=== PATIENT | male | born 1960 | race Caucasian/White ===

== ENCOUNTER 2023-11-12 07:03 | Day surgery (SDC) | payer OTHER, SELFPAY ==
[2023-11-08 09:47] VITALS: BMI 21.7
[2023-11-12 07:09] VITALS: RESP 18; TEMP 36.6; BMI 21.8
--- NOTE | 2023-11-12 07:25 | HO.ANESPROP2 ---
[facility] Past Medical History Medical History IBS (irritable bowel syndrome) Pseudothrombocytopenia Pernicious anemia Surgical History Surgical History Hx of inguinal hernia repair Hx of vasectomy H/O colonoscopy History of esophagogastroduodenoscopy (EGD) History of Problems with Anesthesia: No Social History Social History Household Members: Spouse Patient Tobacco Use Status: Never used Tobacco Are you DNR?: No Advance Directives: No Advance Directives Information Provided: Yes Meds Allergies Allergy/AdvReac Type Severity Reaction Status Date / Time No Known Allergies Allergy Verified 11/08/23 09:47 Home Medications Medication Instructions Recorded Confirmed Last Taken Type Vitamin B-12 11/08/23 11/08/23 Unknown History dicyclomine 10 mg capsule 10 mg PO QID 11/08/23 11/08/23 Unknown History Exam Height,Weight and Vital Signs: Height 6 ft Weight 72.8 kg Last Vital Signs Temp 98 F 11/12/23 07:09 Resp 18 11/12/23 07:09 O2 Del Method Room Air 11/12/23 07:09 Airway Mallampati Class: III TM Dist: >3cm Neck ROM: Full Loose/Missing/Broken Teeth: No Heart: RRR Lungs: CTA Assessment and Plan Assessment Anesthesia Assessment: Anesthesia Plan Discussed and Chart Reviewed Final Anesthetic Review History of Problems with Anesthesia: No NPO: Yes ASA Class: II Final Preanesthetic Review: Meds/Allgs Chart Reviewed, Consent Obtained/Reviewed and Anes Risks/Benef Reviewed Patient Risk: Low Procedure Risk: Intermediate Anesthetic Plan Anesthetic Plan: MAC: Disposition: Standard PACU
[2023-11-12] MEDS: Lactated Ringers 1,000 ML 50 ML IVCONT (07:26)
--- NOTE | 2023-11-12 08:19 | MHC.SHP ---
Pre-Procedural Eval Section A - 24 Hr Update-Section A only Date of Service: 11/12/23 Section B - Complete if H&P > 30 days Chief Complaint: Encounter for screening for malignant neoplasm of Details of Present Illness: see H&P no changes Relevant Family History (Specify if Yes): No Relevant Social History: None Present Medications: see Short Stay Collaborative assessment Medical History: No relevant PMH Allergies: Allergies Allergy/AdvReac Type Severity Reaction Status Date / Time No Known Allergies Allergy Verified 11/08/23 09:47 Review of Systems Sugical H&P ROS: Negative: Constitution, Cardiovascular, Respiratory, Neurological, Psychiatric, Hem-Onc, Allergic/Immunologic, Gastrointestinal, Genitourinary, Musculoskeletal, Integumentary, Endocrine and Eyes/Ears/Nose/Throat Exam Surgical H&P Exam: Normal: HEENT, Normal: Heart, Normal: Lungs, Normal: Extremities, Normal: Abdomen, Normal: Skin and Normal: Neurological Plan Diagnosis/Plan: Unchanged I have reviewed the history and physical and performed a pertinent physical examination on my patient. No changes have occurred unless specified. Time Spent With Patient Time: Total time managing care of this patient today ____ minutes.
[2023-11-12 09:13] VITALS: BP 98/53; PULSE 69; RESP 18; TEMP 36.4; O2SAT 97
[2023-11-12 09:28] VITALS: BP 106/77; PULSE 76; RESP 20; TEMP 36.9; O2SAT 100
--- NOTE | 2023-11-12 10:01 | OP_ITS ---
DATE OF SERVICE: 11/12/2023 SURGEON: Jose Farrar MD INDICATIONS: 1. Irritable bowel syndrome with diarrhea. 2. Gastrointestinal metaplasia. 3. Colon cancer screening. PREOPERATIVE DIAGNOSIS: POSTOPERATIVE DIAGNOSIS: PROCEDURE PERFORMED: Upper endoscopy with biopsy, colonoscopy to the terminal ileum with biopsy. ESTIMATED BLOOD LOSS: COMPLICATIONS: ANESTHESIA: Monitored anesthesia care. ASSISTANTS: SPECIMENS: DESCRIPTION OF PROCEDURE: A history and physical was performed. The risks and benefits of the procedure were explained to the patient. Informed consent was obtained. The patient was placed in the left lateral decubitus position. The Olympus video gastroscope was introduced into the esophagus, stomach, and duodenum. Examination was performed. The scope was removed. He was repositioned for colonoscopy. A digital rectal exam was performed and was found to be normal. The Olympus pediatric video colonoscope was introduced into the rectum and advanced to the cecum. The cecum was identified by transillumination, palpation, and identification of ileocecal valve. Examination was performed. The scope was removed. He tolerated both procedures well and was returned to the recovery area in stable condition. FINDINGS: Upper endoscopy: 1. Esophagus: The esophagus was normal. 2. Stomach: The stomach showed a single benign-appearing polyp that appeared inflammatory in the body. This was biopsied. There was mild gastritis. Biopsies were obtained from throughout the stomach because of the patient's prior history of gastrointestinal metaplasia. 3. Duodenum: The bulb and 2nd portion were normal. Colonoscopy: The terminal ileum was normal. The visualized colonic mucosa was normal. The quality of the prep was good. A single polyp was identified and removed with biopsy forceps. This was located at 70 cm from the anal verge. No other polyps were identified. Retroflexed examination was normal. IMPRESSION: 1. Gastric polyp. 2. Colon polyp. 3. Gastrointestinal metaplasia. RECOMMENDATION: Follow up the biopsy results. MD KIRA Mensah/LINNETTEL / [id number]
== END 2023-11-12 09:52 | disposition home or self-care (01) ==
PROVIDERS: PCP Internal Medicine; Visit Provider Internal Medicine Gastroenterology
PROC: (CPT 43239; principal; 2023-11-12 08:20)
DX: K31.7 Polyp of stomach and duodenum (principal); K31.A0 Gastric intestinal metaplasia, unspecified; K29.60 Other gastritis without bleeding; Z12.11 Encounter for screening for malignant neoplasm of colon; K63.5 Polyp of colon; K58.0 Irritable bowel syndrome with diarrhea; D51.0 Vitamin B12 deficiency anemia due to intrinsic factor deficiency; D69.6 Thrombocytopenia, unspecified; Z79.899 Other long term (current) drug therapy
CPT/HCPCS: 43239; 45380; 88305; 88313; 88342; J2704